=== PATIENT | male | born 1970 | race Caucasian/White ===

== ENCOUNTER 2021-06-26 19:12 | Emergency (ER) | payer SELFPAY ==
[2021-06-26 19:26] LABS: HEMOGLOBIN 14.7 gm/dl (14.0-17.5); RED BLOOD COUNT 4.63 M/UL (4.20-5.50); WHITE BLOOD COUNT 9.1 K/UL (4.5-11.0)
[2021-06-26 19:55] LABS: BUN/CREATININE RATIO 17 (0-10)
[2021-06-26] MEDS ORDERED: CEPHALEXIN500 MG PO (20:47)
== END 2021-06-26 20:50 | disposition home or self-care (01) ==
LOC: ER1 19:12
PROVIDERS: Emergency Medicine
DX: S11.91XA Laceration without foreign body of unspecified part of neck, initial encounter (principal); S21.211A Laceration without foreign body of right back wall of thorax without penetration into thoracic cavity, initial encounter; W26.8XXA Contact with other sharp object(s), not elsewhere classified, initial encounter
CPT/HCPCS: 70450; 70491; 71045; 71260; 80053; 83605; 85025; 85610; 85730; 86850; 86900; 86901; 96374; 96375; 99284; G0480; J0690; J2270; J2405; J3010; Q9967